=== PATIENT | female | born 1995 | race Caucasian/White ===

== ENCOUNTER 2016-11-07 19:20 | Emergency (ER) | payer OTHER ==
[~2016-11-07] VITALS: Ht 167.6 cm; Wt 117.5 kg
[2016-11-07 19:27] VITALS: BP 140/85; PULSE 67; RESP 16; TEMP 98.6; O2SAT 98
[2016-11-07] MEDS ORDERED: Birth control pill PO (20:13)
--- NOTE | 2016-11-07 20:32 | PD ---
HPI Chief Complaint: Cold / Flu Symptoms Time Seen by Provider: 20:32 Travel History International Travel<30 days: No Contact w/Intl Traveler<30days: No Traveled to known affect area: No History of Present Illness HPI 19-year-old female presents to the emergency Department with complaint of nasal congestion, sore throat, cough, body aches, feeling tired 2 days. Started out with nasal congestion yesterday and has worsened into today. Has tried taking [id number] medication with no relief. Denies fever, but reports feeling hot. Denies headache, nausea, vomiting, abdominal pain. Denies chest pain, shortness of breath. No one else sick clicker. No known aggravating or relieving factors. No known allergies. Currently on control. Denies significant past medical history. No other modifying factors or associated signs and symptoms. PFSH Past Medical History Medical History: Denies Significant Hx Diminished Hearing: No Immunizations Current: Yes Tetanus Vaccination: Unknown Influenza Vaccination: No ?: Not LMP: 2 weeks ago Menopausal: No Past Surgical History Surgical History: No Previous Surgery Social History Alcohol Use: No Tobacco Use: Yes (11/06 PPD) Substance Use: No Allergies-Medications (Allergen,Severity, Reaction): Coded Allergies: No Known Allergies (Unverified , 11/07/16) Reported Meds & Prescriptions Reported Meds & Active Scripts Active Reported [ control pill] 1 Tab PO DAILY Review of Systems Except as stated in HPI: all other systems reviewed are Neg Physical Exam Narrative GENERAL: Well-nourished, well-developed female patient, in no acute distress SKIN: Warm and dry. No rash. HEAD: Atraumatic. Normocephalic. EYES: Pupils equal and round at 3 mm with brisk reaction. No scleral icterus. No injection or drainage. PERRLA. ENT: Mucosa pink and moist. No erythema or exudates. No uvular edema. No uvular , palatal, or tonsillar deviation. Airway patent. EARS: Bilateral pinnae and external canals appear within normal limits. Bilateral tympanic membranes without erythema, dullness or perforation. NECK: Trachea midline. No lymphadenopathy. CARDIOVASCULAR: Regular rate and rhythm. No murmur appreciated. RESPIRATORY: No accessory muscle use. Clear to auscultation. Breath sounds equal bilaterally. GASTROINTESTINAL: Abdomen soft, non-tender, nondistended. Hepatic and splenic margins not palpable. Bowel sounds are active 4 quadrants. MUSCULOSKELETAL: No obvious deformities. No clubbing. No cyanosis. No edema. NEUROLOGICAL: Awake and alert. Oriented 3. No obvious cranial nerve deficits. Motor grossly within normal limits. Normal speech. Moves all extremities. 5/5 strength to all extremities. PSYCHIATRIC: Appropriate mood and affect; insight and judgment normal. Data Data Last Documented VS Vital Signs Date Time Temp Pulse Resp B/P Pulse Ox O2 Delivery O2 Flow Rate FiO2 11/07/16 20:10 14 98 Room Air 11/07/16 19:27 98.6 67 140/85 Orders Group A Rapid Strep Screen (11/07/16 20:32) Influenzae A/B Antigen (11/07/16 20:32) Ibuprofen (Motrin) (11/07/16 20:45) Strep Culture (Group A) (11/07/16 20:40) MDM Medical Decision Making Medical Screen Exam Complete: Yes Emergency Medical Condition: Yes Medical Record Reviewed: Yes Differential Diagnosis Viral illness, bronchitis, influenza, strep pharyngitis Narrative Course 20-year-old female with nasal congestion, cough, body aches, sore throat. Suspecting viral illness. Afebrile in the ER. Nontoxic appearing. Influenza and rapid strep ordered. 2123: Strep and influenza negative. Discussed viral illness and symptomatic management patient verbalized understanding and agreement. Ibuprofen, Nasonex, Magic mouthwash prescribed for home. Patient is medically cleared and stable for discharge. Discussed reasons to return to the emergency department. Instructed patient to follow up with primary care provider. Patient agrees with treatment plan. The patients vital signs are stable and the patient is stable for outpatient follow-up and treatment. Patient discharged home, stable and in no acute distress. Diagnosis Primary Impression: Viral illness Referrals: Primary Care Physician Patient Instructions: Cold Symptoms (ED), General Instructions, Safe Use of Cough and Cold Medicines (ED) Additional Instructions: Ibuprofen or Tylenol as directed and as needed to reduce fever/pain Get plenty of sleep/rest Drink plenty of fluids to prevent dehydration Garza diet to encourage nutrition such as crackers, fruit, applesauce, toast, soup etc. Use an air humidifier/turn off ceiling fans Follow-up with your primary care provider Return immediately to the emergency department with worsening of symptoms Med/Other Pt SpecificInfo: Prescription(s) given Scripts Qltjxnhi-Slmacszwthlontb-Zapvbfqye Liq (Magic Mouthwash Adult Liq)120 Ml Susp5 Ml SWISH-SPIT Q3HR PRN (SORE THROAT) #120 ML Ref 0 Each 5 mL contains: Nystatin 200,000 units, Diphenhydramine 4.25 mg, Viscous Lidocaine 10 mg, Helms syrup 0.8 mL Prov:Rachel Byrne 11/07/16 Ibuprofen 800 Mg [id number] Mg PO Q6HR PRN (PAIN) #30 TAB Ref 0 Prov:Rachel Byrne 11/07/16 Mometasone Nasal [place] (Nasonex Nasal [place])50 Mcg/Act Naspr2 [place] EACH NARE DAILY PRN (NASAL CONGESTION) #1 BOTTLE Ref 0 Prov:Rachel Byrne 11/07/16 Disposition: 01 DISCHARGE HOME Condition: Stable Rachel Byrne Nov 07, 2016 20:32
[2016-11-07] MEDS ORDERED: IBUPROFEN 800 MG TAB PO ONE (20:45)
[2016-11-07] MEDS ORDERED: MOME17I EACH NARE (21:28)
[2016-11-07] MEDS ORDERED: MAGICADU2 SWISH-SPIT (21:28)
[2016-11-07] MEDS ORDERED: IBUP800T23 PO (21:28)
== END 2016-11-07 21:39 | disposition home or self-care (01) ==
LOC: PHED 19:20 → PHEFT 21:39
DX: B34.9 Viral infection, unspecified (principal); R05 Cough; M79.1 Myalgia; F17.200 Nicotine dependence, unspecified, uncomplicated
CPT/HCPCS: 87081; 87804; 87880; 99283

== ENCOUNTER 2017-09-18 15:53 | Emergency (ER) | payer OTHER ==
[~2017-09-18] VITALS: Ht 167.6 cm; Wt 114.7 kg
[~2017-09-18 15:53] MED LIST: Birth control pill PO; IBUP1TAB7 PO; MAGICADU2 SWISH-SPIT; MOME17I EACH NARE
[2017-09-18 16:06] VITALS: BP 153/92; PULSE 74; RESP 18; TEMP 97.2; O2SAT 99
[2017-09-18] MEDS ORDERED: ORPHENADRINE INJ 60 MG/2 ML AMP IM ONE (16:30)
[2017-09-18] MEDS ORDERED: SODIUM CHLORIDE 0.9% FLUSH 10 ML FLUSH IVF PRN (16:30)
[2017-09-18] MEDS ORDERED: KETOROLAC TROMETHAMINE 30 MG/ML (IVP) VIAL IV PUSH ONE (16:30)
--- NOTE | 2017-09-18 16:32 | PD ---
HPI Chief Complaint: Pain: Acute or Chronic Time Seen by Provider: 16:20 Travel History International Travel<30 days: No Contact w/Intl Traveler<30days: No Traveled to known affect area: No History of Present Illness HPI This is a 21-year-old female who presents for evaluation. For one month she has had pain in her left rib cage/thoracic back region which she describes as a tightness/spasm any pain which is constant but worse with movement, coughing. She denies shortness of breath, abdominal pain, nausea or vomiting, dysuria. She has been seen by her primary care physician twice and she has been prescribed gabapentin, Robaxin, naproxen for the past several weeks with no improvement in her symptoms. She denies any injuries. She denies any calf swelling, recent travel, recent surgery. She is on oral contraceptives. She has no other complaints at this time. PFS Past Medical History Diminished Hearing: No Immunizations Current: Yes ?: Not LMP: LAST WEEK Menopausal: No Social History Alcohol Use: No Tobacco Use: Yes (/2 PPD) Substance Use: No Allergies-Medications (Allergen,Severity, Reaction): Coded Allergies: No Known Allergies (Unverified Allergy, Unknown, 09/18/17) Reported Meds & Prescriptions Reported Meds & Active Scripts Active Azithromycin 250 Mg Tab 250 Mg PO DIRECTED Take 2 tabs (500 mg) on day 1 then 1 tab daily x 4 days. Lidocaine Patch 12 HR (Lidocaine) 5 % Patch 1 Patch TOPICAL DAILY PRN Remove patch after 12 hours Baclofen 10 Mg Tab 10 Mg PO Q8HR [address] (Diclofenac Sodium) 75 Mg Tabdr 75 Mg PO BID 10 Days Reported Methocarbamol 750 Mg Tab 750 Mg PO TID Gabapentin 100 Mg Cap 100 Mg PO TID Naprosyn (Naproxen) 500 Mg Tab 500 Mg PO BID Ambien (Zolpidem Tartrate) 10 Mg Tab 10 Mg PO HS PRN Paxil (Paroxetine HCl) 10 Mg Tab 20 Mg PO DAILY Review of Systems Except as stated in HPI: all other systems reviewed are Neg Physical Exam Narrative Examined in the presence of a female nurse at all times GENERAL: Well-developed well-nourished female in no acute distress SKIN: Warm and dry. No rash, no bruising or soft tissue swelling HEAD: Atraumatic. Normocephalic. EYES: Pupils equal and round. No scleral icterus. No injection or drainage. ENT: No nasal bleeding or discharge. Mucous membranes pink and moist. NECK: Trachea midline. No JVD. CARDIOVASCULAR: Regular rate and rhythm. No murmur appreciated. RESPIRATORY: No accessory muscle use. Clear to auscultation. Breath sounds equal bilaterally. No crackles no wheezing or rhonchi GASTROINTESTINAL: Abdomen soft, non-tender, nondistended. Hepatic and splenic margins not palpable. MUSCULOSKELETAL: No obvious deformities. Generalized tenderness to palpation to the left thoracic musculature as well as the left anterior rib cage. No pitting edema in the lower extremities NEUROLOGICAL: Awake and alert. No obvious cranial nerve deficits. Motor grossly within normal limits. Normal speech. Data Data Last Documented VS Vital Signs Date Time Temp Pulse Resp B/P (MAP) Pulse Ox O2 Delivery O2 Flow Rate FiO2 09/18/17 17:20 48 18 133/62 (85) 98 Room Air 09/18/17 16:06 97.2 Orders Orders Electrocardiogram (09/18/17 16:27) Ckmb (Isoenzyme) Profile (09/18/17 16:27) Complete Blood Count With Diff (09/18/17 16:27) Comprehensive Metabolic Panel (09/18/17 16:27) D-Dimer (09/18/17 16:27) Magnesium (Mg) (09/18/17 16:27) Chest, Single Ap (09/18/17 16:27) Ecg Monitoring (09/18/17 16:27) Iv Access Insert/Monitor (09/18/17 16:27) Oximetry (09/18/17 16:27) Sodium Chloride 0.9% Flush (Ns Flush) (09/18/17 16:30) Ed Urine Pregnancytest Poc (09/18/17 16:27) Ketorolac Inj (Toradol Inj) (09/18/17 16:30) Orphenadrine Inj (Norflex Inj) (09/18/17 16:30) CKMB (09/18/17 16:50) CKMB% (09/18/17 16:50) Ct Pulmonary Angiogram (09/18/17 17:33) Iohexol 350 Inj (Omnipaque 350 Inj) (09/18/17 18:41) Labs Laboratory Tests Test 09/18/17 16:50 White Blood Count 10.1 TH/MM3 Red Blood Count 5.06 MIL/MM3 Hemoglobin 12.5 GM/DL Hematocrit 37.5 % Mean Corpuscular Volume 74.1 FL Mean Corpuscular Hemoglobin 24.7 PG Mean Corpuscular Hemoglobin Concent 33.3 % Red Cell Distribution Width 13.4 % Platelet Count 284 TH/MM3 Mean Platelet Volume 8.4 FL Neutrophils (%) (Auto) 59.3 % Lymphocytes (%) (Auto) 26.2 % Monocytes (%) (Auto) 5.1 % Eosinophils (%) (Auto) 6.7 % Basophils (%) (Auto) 2.7 % Neutrophils # (Auto) 5.9 TH/MM3 Lymphocytes # (Auto) 2.7 TH/MM3 Monocytes # (Auto) 0.5 TH/MM3 Eosinophils # (Auto) 0.7 TH/MM3 Basophils # (Auto) 0.3 TH/MM3 CBC Comment AUTO DIFF Differential Comment AUTO DIFF CONFIRMED Ovalocytes 1+ D-Dimer Quantitative (PE/DVT) 1.02 MG/L FEU Blood Urea Nitrogen 14 MG/DL Creatinine 0.78 MG/DL Random Glucose 83 MG/DL Total Protein 7.5 GM/DL Albumin 3.5 GM/DL Calcium Level 8.5 MG/DL Magnesium Level 2.0 MG/DL Alkaline Phosphatase 111 U/L Aspartate Amino Transf (AST/SGOT) 13 U/L Alanine Aminotransferase (ALT/SGPT) 21 U/L Total Bilirubin 0.3 MG/DL Sodium Level 143 MEQ/L Potassium Level 3.9 MEQ/L Chloride Level 110 MEQ/L Carbon Dioxide Level 24.1 MEQ/L Anion Gap 9 MEQ/L Estimat Glomerular Filtration Rate 94 ML/MIN Total Creatine Kinase 126 U/L Creatine Kinase MB 1.1 NG/ML [facility] Medical Decision Making Medical Screen Exam Complete: Yes Emergency Medical Condition: Yes Medical Record Reviewed: Yes Differential Diagnosis Muscle strain, spasm, pneumothorax, costochondritis, rib fracture, electrolyte abnormality, shingles Narrative Course 21-year-old female has been having left-sided thoracic/back pain for several weeks unrelieved with prescribed NSAIDs, muscle relaxants. Plan is for lab work , chest x-ray. She was given Toradol and Norflex. The patient's lab work is reassuring. She does have mildly elevated d-dimer therefore CT pulmonary angiogram was ordered. CONCLUSION: 1. No pulmonary embolus. 2. Minimal faint density in the subpleural region at the posterior left lower lobe likely related to minimal atelectasis or consolidation. She has faint consolidation in the left lower lobe, she does endorse a cough which has been present for the past several days. She'll be treated empirically for community-acquired pneumonia with azithromycin. Her pain seems primarily muscular. Her medications will be changed in an effort to help with her symptoms. Stable for discharge. Diagnosis Primary Impression: Thoracic back pain Additional Impressions: Chest wall pain Pneumonia Additional Instructions: Quit taking the Robaxin and Naprosyn previously prescribed. Take the new medications as prescribed. Do not drive or drink alcohol when taking baclofen. Follow up close with primary care physician. Return for any emergent medical conditions. Med/Other Pt SpecificInfo: Prescription(s) given Scripts Azithromycin (Azithromycin) 250 Mg Tab 250 MG PO DIRECTED for Infection, #6 TAB 0 Refills Take 2 tabs (500 mg) on day 1 then 1 tab daily x 4 days. Prov: Catherine Guerrier DO 09/18/17 Lidocaine Patch 12 HR (Lidocaine Patch 12 HR) 5 % Patch 1 PATCH TOPICAL DAILY Y for PAIN, #1 BOX 0 Refills Remove patch after 12 hours Prov: Catherine Guerrier DO 09/18/17 Baclofen (Baclofen) 10 Mg Tab 10 MG PO Q8HR for 10 Days, TAB 0 Refills Prov: Catherine Guerrier DO 09/18/[address] (Diclofenac Sodium DR) 75 Mg Tabdr 75 MG PO BID for 10 Days, #20 TAB 0 Refills Prov: Catherine Guerrier DO 09/18/17 Disposition: 01 DISCHARGE HOME Condition: Stable Say Zayas Sep 18, 2017 16:32
[2017-09-18] MEDS ORDERED: PAXI10TA8 PO (16:33)
[2017-09-18] MEDS ORDERED: METH750T PO (16:33)
[2017-09-18] MEDS ORDERED: NAPR500 PO (16:33)
[2017-09-18] MEDS ORDERED: GABA100C4 PO (16:33)
[2017-09-18] MEDS ORDERED: AMBI10TA PO (16:33)
[2017-09-18 17:03] LABS: AUTOMATED NEUTROPHIL # 5.9 TH/MM3 (1.8-7.7); BASOPHIL # 0.3 TH/MM3 (0-0.2); BASOPHIL % 2.7 % (0.0-2.0); EOSINOPHIL # 0.7 TH/MM3 (0-0.4); EOSINOPHIL % 6.7 % (0.0-4.0); HEMATOCRIT 37.5 % (35.0-46.0); LYMPH % 26.2 % (9.0-44.0); LYMPHOCYTE # 2.7 TH/MM3 (1.0-4.8); MEAN CELL VOLUME 74.1 FL (80.0-100.0); MEAN CORPUSCULAR HEMOGLOBIN 24.7 PG (27.0-34.0); MEAN CORPUSCULAR HGB CONC 33.3 % (32.0-36.0); MONO % 5.1 % (0.0-8.0); NEUT % 59.3 % (16.0-70.0); PLATELET COUNT 284 TH/MM3 (150-450); RED BLOOD COUNT 5.06 MIL/MM3 (4.00-5.30); RED CELL DISTRIBUTION WIDTH 13.4 % (11.6-17.2); WHITE BLOOD COUNT 10.1 TH/MM3 (4.0-11.0)
[2017-09-18 17:10] LABS: CHLORIDE 110 MEQ/L (98-107); POTASSIUM 3.9 MEQ/L (3.5-5.1); SODIUM (NA) 143 MEQ/L (136-145)
[2017-09-18 17:14] LABS: ANION GAP 9 MEQ/L (5-15); BICARBONATE 24.1 MEQ/L (21.0-32.0); BLOOD UREA NITROGEN 14 MG/DL (7-18)
[2017-09-18 17:16] VITALS: O2SAT 98
[2017-09-18 17:17] LABS: ALT (GPT) 21 U/L (9-42); AST (GOT) 13 U/L (16-38); GLOMERULAR FILTRATION RATE 94 ML/MIN (>89)
[2017-09-18 17:18] LABS: TOTAL BILIRUBIN ADULT 0.3 MG/DL (0.2-1.0)
[2017-09-18 17:20] VITALS: BP 133/62; PULSE 48; RESP 18; O2SAT 98
[2017-09-18 17:20] LABS: ALKALINE PHOSPHATASE 111 U/L (45-117); CREATINE KINASE 126 U/L (26-192)
[2017-09-18 17:21] LABS: HEMO FLAGS AUTO DIFF
--- NOTE | 2017-09-18 17:25 | RADRPT ---
EXAM DATE/TIME: 09/18/2017 17:12 [facility] COMPARISON: No previous studies available for comparison. INDICATIONS : Left lower rib and chest pain for 1 month. No injury. MEDICAL HISTORY : None. SURGICAL HISTORY : None. ENCOUNTER: Initial ACUITY: 1 month PAIN SCORE: 7/10 LOCATION: Left lower chest FINDINGS: Portable AP view of the chest demonstrates a normal-sized cardiac silhouette. No effusion, consolidat ion, or pneumothorax is visualized. The bones and soft tissues demonstrate no acute abnormality. CONCLUSION: Normal single view chest x-ray. Victorino Nicholson MD on September 18, 2017 at 17:23 Board Certified Radiologist. This report was verified electronically.
[2017-09-18 17:43] LABS: CKMB 1.1 NG/ML (0.5-3.6)
[2017-09-18 18:08] LABS: OVALOCYTES 1+ (NORMAL); SCAN/DIFF AUTO DIFF CONFIRMED
[2017-09-18] MEDS ORDERED: IOHEXOL 350 MG/ML 10 ML VIAL (for RAD DIAG) IVCONTRAST ONE (18:41)
--- NOTE | 2017-09-18 19:37 | RADRPT ---
EXAM DATE/TIME: 09/18/2017 18:28 [facility] COMPARISON: No previous studies available for comparison. INDICATIONS : Left chest pain. Evaluate for pulmonary embolism. IV CONTRAST: 65 cc Omnipaque 350 (iohexol) IV RADIATION DOSE: 19.21 CTDIvol (mGy) MEDICAL HISTORY : None SURGICAL HISTORY : None. ENCOUNTER: Initial ACUITY: 1 month PAIN SCALE: 4/10 LOCATION: Left chest TECHNIQUE: Volumetric scanning of the chest was performed using a pulmonary embolism protocol MIP images were re constructed. Using automated exposure control and adjustment of the mA and/or kV according to patien t size, radiation dose was kept as low as reasonably achievable to obtain optimal diagnostic quality images. DICOM format image data is available electronically for review and comparison. Follow-up recommendations for detected pulmonary nodules are based at a minimum on nodule size and pa tient risk factors according to Fleischner Society Guidelines. FINDINGS: PULMONARY ARTERIES: No filling defects are seen in the pulmonary arteries through the segmental level. LUNGS: There is very minimal faint increased density at the posterior left lower lobe PLEURAE: There is no pleural thickening or pleural effusion. MEDIASTINUM: There is good visualization of the great vessels of the middle mediastinum. No evidence of mediastin al or hilar adenopathy/mass. MUSCULOSKELETAL: Within normal limits for patient age. MISCELLANEOUS: The visualized upper abdominal organs demonstrate no acute abnormality. CONCLUSION: 1. No pulmonary embolus. 2. Minimal faint density in the subpleural region at the posterior left lower lobe likely related to minimal atelectasis or consolidation. Victorino Leary MD on September 18, 2017 at 19:33 Board Certified Radiologist. This report was verified electronically.
[2017-09-18] MEDS ORDERED: DICL75TA PO (19:43)
[2017-09-18] MEDS ORDERED: AZIT250T3 PO (19:43)
[2017-09-18] MEDS ORDERED: LIDO1PAD52 TOPICAL (19:43)
[2017-09-18] MEDS ORDERED: BACL10TA PO (19:43)
[2017-09-18 19:55] VITALS: BP 129/74
--- NOTE | 2017-09-18 21:00 | EKG ---
Date Performed: 09/18/2017 Time Performed: 16:39:37 PTAGE: 21 years EKG: SINUS BRADYCARDIA BORDERLINE ECG NO PREVIOUS TRACING DOCTOR: Kwaku Earl Interpretating Date/Time 09/18/2017 20:58:42
== END 2017-09-18 19:55 | disposition home or self-care (01) ==
LOC: PHEFT 15:53
DX: M54.6 Pain in thoracic spine (principal); J18.9 Pneumonia, unspecified organism; F17.200 Nicotine dependence, unspecified, uncomplicated; Z79.899 Other long term (current) drug therapy
CPT/HCPCS: 71010; 71275; 80053; 82550; 82552; 83735; 84703; 85025; 85379; 93005; 96372; 96374; 99285; J1885; J2360; Q9967

== ENCOUNTER 2017-10-14 15:55 | Emergency (ER) | payer OTHER ==
[~2017-10-14] VITALS: Ht 165.1 cm; Wt 112.0 kg
[~2017-10-14 15:55] MED LIST changes: +AMBI10TA PO; +AZIT250T3 PO; +BACL10TA PO; -Birth control pill PO; +DICL75TA PO; +GABA100C4 PO; -IBUP1TAB7 PO; +LIDO1PAD52 TOPICAL; -MAGICADU2 SWISH-SPIT; +METH750T PO; -MOME17I EACH NARE; +NAPR500 PO; +PAXI10TA8 PO
[2017-10-14 15:58] VITALS: BP 147/77; PULSE 61; RESP 16; TEMP 97.4; O2SAT 97
[2017-10-14] MEDS ORDERED: CEPH-460 PO (16:36)
[2017-10-14] MEDS ORDERED: MUPI2%T TOPICAL (16:36)
--- NOTE | 2017-10-14 16:38 | PD ---
HPI Chief Complaint: Skin Problem Time Seen by Provider: 16:38 Travel History International Travel<30 days: No Contact w/Intl Traveler<30days: No Traveled to known affect area: No History of Present Illness HPI 21 year old female with multiple pustules and possible abscess to the trunk 5 days. She denies fever or chills. Symptom severity is mild. No aggravating or alleviating factors. No associated symptoms. PFSH Past Medical History ADHD: Yes Anxiety: Yes Diminished Hearing: No Immunizations Current: Yes Tetanus Vaccination: < 5 Years Influenza Vaccination: Yes ?: Not LMP: just finished Menopausal: No Social History Alcohol Use: No Tobacco Use: Yes (/2 PPD) Substance Use: No Allergies-Medications (Allergen,Severity, Reaction): Coded Allergies: No Known Allergies (Unverified Allergy, Unknown, 10/14/17) Reported Meds & Prescriptions Reported Meds & Active Scripts Active Bactroban Topical (Mupirocin) 22 Gm Cream 1 Applic TOPICAL BID Keflex (Cephalexin) 500 Mg Capsule 500 Mg PO Q6H 10 Days Reported Ambien (Zolpidem Tartrate) 10 Mg Tab 10 Mg PO HS PRN Paxil (Paroxetine HCl) 10 Mg Tab 20 Mg PO DAILY Review of Systems Except as stated in HPI: all other systems reviewed are Neg General / Constitutional: No: Fever Physical Exam Narrative GENERAL: Alert female. Nontoxic appearing. SKIN: Warm and dry. Several small erythematous pustules to the anterior aspect of the trunk. No induration or fluctuance. HEAD: Normocephalic. EYES:. No injection or drainage. NECK: Supple, trachea midline. No JVD or lymphadenopathy. CARDIOVASCULAR: Regular rate and rhythm without murmurs, gallops, or rubs. RESPIRATORY: Breath sounds equal bilaterally. No accessory muscle use. GASTROINTESTINAL: Abdomen soft, non-tender, nondistended. Data Data Last Documented VS Vital Signs Date Time Temp Pulse Resp B/P (MAP) Pulse Ox O2 Delivery O2 Flow Rate FiO2 10/14/17 15:58 97.4 61 16 147/77 (100) 97 Orders Orders Ed Discharge Order (10/14/17 16:39) MDM Medical Decision Making Medical Screen Exam Complete: Yes Emergency Medical Condition: Yes Differential Diagnosis Abscess, fluctuance, cellulitis Narrative Course 21-year-old female here with multiple pustules and one abscess to her trunk 5 days. Patient denies fever or chills. All areas are nonindurated, nonfluctuant. Vital signs are stable. Nontoxic appearing. We treated for folliculitis. Diagnosis Primary Impression: Folliculitis Referrals: Primary Care Physician Scripts Mupirocin Topical (Bactroban Topical) 22 Gm Cream 1 APPLIC TOPICAL BID for Mgmt Bacterial Infection, #1 TUBE 0 Refills Prov: Emily Suarez 10/14/17 Cephalexin (Keflex) 500 Mg Capsule 500 MG PO Q6H for Infection for 10 Days, #40 CAP 0 Refills Prov: Emily Suarez 10/14/17 Disposition: 01 DISCHARGE HOME Condition: Stable Emily Suarez Oct 14, 2017 16:38
== END 2017-10-14 16:49 | disposition home or self-care (01) ==
LOC: PHEFT 15:55
DX: L73.9 Follicular disorder, unspecified (principal); F90.9 Attention-deficit hyperactivity disorder, unspecified type; Z72.0 Tobacco use
CPT/HCPCS: 99284